=== PATIENT | female | born 1970 | race Two or more races ===

== ENCOUNTER 2023-10-17 17:12 | Emergency (ER) | payer SELFPAY ==
[~2023-10-17] VITALS: Ht 160 cm; Wt 74.8 kg
[2023-10-17 17:51] LABS: BASOPHILS # (AUTO) 0.2 K/UL (0.0-0.2); BASOPHILS % (AUTO) 2.6 % (0.0-2.0); EOSINOPHILS # (AUTO) 0.3 K/uL (0.0-0.7); EOSINOPHILS % (AUTO) 4.8 % (0.0-7.0); HEMATOCRIT 43.6 % (31.2-41.9); HEMOGLOBIN 15.3 g/dL (10.9-14.3); LYMPHOCYTES # (AUTO) 3.1 K/uL (0.8-4.8); LYMPHOCYTES % (AUTO) 47.5 % (20.5-51.5); MEAN CORPUSCULAR HEMOGLOBIN 33.5 uug (24.7-32.8); MEAN CORPUSCULAR HGB CONC 35 g/dL (32.3-35.6); MEAN CORPUSCULAR VOLUME 95.7 fL (75.5-95.3); MONOCYTES # (AUTO) 0.2 K/uL (0.1-1.30); MONOCYTES % (AUTO) 3.5 % (0.0-11.0); NEUTROPHILS # (AUTO) 2.7 K/uL (1.8-8.9); NEUTROPHILS % (AUTO) 41.6 % (38.5-71.5); PLATELET COUNT (AUTO) 202 K/uL (179-408); RED BLOOD CELL COUNT(AUTO) 4.55 MIL/uL (3.63-4.92); RED CELL DISTRIBUTION WIDTH 12.8 % (12.3-17.7); WHITE BLOOD COUNT (AUTO) 6.5 K/uL (3.8-11.8)
[2023-10-17 17:52] LABS: DIFFERENTIAL COMMENT 1
[2023-10-17 18:06] LABS: AMMONIA 30 umol/L (11-32)
[2023-10-17 18:13] LABS: ALANINE AMINOTRANSFERASE 68 U/L (14-59); ALBUMIN 3.8 g/dL (3.4-5.0); ALKALINE PHOSPHATASE 131 U/L (50-136); ASPARTATE AMINOTRANSFERASE 77 U/L (15-37); BILIRUBIN,DIRECT 0.2 mg/dL (0.0-0.2); BILIRUBIN,TOTAL 0.7 mg/dL (0.2-1.0); CALCIUM 8.9 mg/dL (8.5-10.1); CARBON DIOXIDE 22 mmol/L (21-32); CHLORIDE 107 mmol/L (98-107); CREATININE 0.6 mg/dL (0.6-1.3); GLUCOSE 117 mg/dL (74-106); POTASSIUM 3.5 mmol/L (3.5-5.1); SODIUM SERUM 142 mmol/L (136-145); TOTAL PROTEIN, SERUM 8.2 g/dL (6.4-8.2); UREA NITROGEN, BLOOD 7 mg/dL (7-18)
[2023-10-17 18:18] LABS: THYROID STIMULATING HORMONE 0.747 mIU/mL (0.358-3.740)
[2023-10-17 18:24] LABS: ACETAMINOPHEN < 2.0 ug/mL (10-30)
[2023-10-17 18:27] LABS: ETHANOL 403 MG/DL (0-10)
[2023-10-17 23:43] VITALS: BP 124/77; TEMP 98.6; O2SAT 99
== END 2023-10-17 23:43 | disposition home or self-care (01) ==
LOC: ER 17:14
DX: R55 Syncope and collapse (principal)
CPT/HCPCS: 36415; 70450; 71045; 73562; 84443; 84484; 85025; 85730; 93005; A4606; A4663; G0480